=== PATIENT | male | born 1955 | race Caucasian/White ===

== ENCOUNTER → 2018-10-09 | Outpatient (CLI) | payer BC ==
[~2018-10-09] MED LIST: COZAAR 25 MG TA25 M2 PO; FLOMAX0.4 MG PO; MILK THISTLE175 M3 PO; MOBIC15 MG PO; MULTI-VITAMIN1 EAC5 PO; OMEGA-31000 M1 PO; PRILOSEC 20 MG20 MG PO; TRIPLE FLEX CA1 EACH PO; ULTRAM 50MG TAB50 MG PO; VIAGRA100 MG PO
--- NOTE | ~2018-10-09 | PAINCON ---
[address] [address] PAIN MANAGEMENT CONSULTATION Name: FRANCOISRAINE Room: [facility]#: [id number] Admission: 10/09/18 Attend Phys: Jesus Issa MD Discharge: Date of : 57 Report #: [id number] THIS REPORT FOR: //name// CC: Jesus Talley DATE OF SERVICE: 10/09/2018 CHIEF COMPLAINT: Back pain and right lower butt discomfort. HISTORY: The patient is a 63-year-old gentleman who has been followed in the [facility] He presents today with the desire to undergo treatment at our pain facility. He complains of pain in his back as well as in the right hip area. This has been problematic for quite some time. It has been present since 2013. He has had surgery on his low back area. The patient has had radiofrequency lesioning as well as some injections. He was not sure that the radiofrequency lesioning has been very helpful. Epidural steroid injections in the past have been helpful and provided about 75% relief. Had lumbar laminectomy in 2017. Rates his pain as a 7/10 at this juncture. Has used tramadol at bedtime as well as Mobic 15 mg daily. Notes that his pain is a 2-3, when he is sitting. Works in a salesman capacity. Notes that there is a tight pulling sensation in his low back area. Feels that there might be some pain and discomfort involving the piriformis muscle. He has also had some problems with SI joint problems and has undergone injections for this area in the past. Describes his pain as steady, burning, shooting, aching and intermittent. He is not having much pain radiating down into his leg on today's visit. ALLERGIES: PHENOBARBITAL, AUGMENTIN, an adverse reaction. CURRENT MEDICATIONS: Glucosamine chondroitin 2 tablets, Cozaar 25 mg/100 mg daily, Mobic 15 mg, milk thistle extract 175 mg, 350 mg daily, multivitamins, omega 3 of 1000 mg, Prilosec 20 mg, total of 40 mg daily; Viagra p.r.n., Flomax 0.4 mg at bedtime, tramadol 50 mg. PAST MEDICAL HISTORY: 1. Urgent need to urinate. 2. Sacral iliac pain. 3. Polyarthralgia. 4. Low back pain. 5. Essential hypertension. 6. Finger pain. 7. ____ hypertension. 8. Sleep apnea. 9. [place] [address] PAIN MANAGEMENT CONSULTATION Name: RAINE FRANCOIS Room: [facility]#: [id number] Admission: 10/09/18 Attend Phys: Jesus Issa MD Discharge: Date of : 57 Report #: [id number] PAST SURGICAL HISTORY: Left knee surgery in 1986, back surgery in 09/2017. Total of about 7 surgeries after the infected surgery of the knee in ____. Left elbow surgery in 1994, right foot spur removal. REVIEW OF SYSTEMS: Generally unremarkable, joint pain, back pain, difficulty walking. LABORATORY DATA: 1. MRI dated 2015, L2-L3, disk narrowed. A circumferential osteophyte/disc complex. No focal disk protrusion. Moderate inferior neural foraminal encroachment bilaterally. Moderate facet arthropathy. Thecal sac 1.1 cm AP. 2. L3-L4 disk narrowing with circumferential osteophyte complex. No focal disk protrusion. Moderate to severe facet arthropathy. Moderate bilateral neural foraminal encroachment. Central canal reduced in AP diameter to 0.7 cm. The lateral dimension of the canal is 0.9 cm. Thecal sac 0.7 cm AP. 3. L4-L5 disk space narrowed with moderate annular bulge. Disk bulge most significant in the left lateral recess and left exiting neural foramen, resulted in severe left neural foraminal encroachment. Moderate to severe facet arthropathy present. Central canal without stenosis. Thecal sac 0.9 cm AP. 4. L5-S1 disk narrowed with circumferential osteophyte complex. No focal disk protrusion. Severe facet arthropathy. Findings result in severe bilateral neural foraminal encroachment. Central canal without stenosis. Thecal sac 1.0 cm AP, myelogram spine exam dated 08/07/2017. a. Moderate lumbar scoliosis with chronic degenerative changes. b. Lateral translation L3 to the left of L4. 5. Prominent anterior indentation of the dural sac at L2-L3 with moderate spinal stenosis. 6. Broad left lateral induration of the dural sac at L4-L5 with reduced filling at L4 and L5 nerve sheaths. 7. There corresponds to soft tissue mass compatible with extruded disk on CT. 8. Anterior indentation of the dural sac at L4-L5 and L5-S1 compatible with bulging disk. L-spine exam, lateral flexion and extension views lumbar spine 08/07/2017. History of scoliosis. FINDINGS: The lumbar vertebral bodies maintained. They are normal in height. There is an 8 mm of retrolisthesis of L2 on L3 with moderate to severe loss of disk space height at that level. There is moderate degenerative height loss at L3-L4 and mild loss at L1-L2 and severe loss at L5-S1. Multilevel facet arthropathy is noted. There is approximately 1 mm of motion at L2 on L3 between flexion and extension. There is 3 mm of movement of L3 on L4 between flexion and extension. CT of the spine dated 08/07/2017. 1. Lumbar stenosis and severe chronic degenerative changes. 2. Mild circumferential L4-L5 disk bulging with soft tissue density material extending superiorly in the left lateral recess and left neural foramen. 3. This may represent an extruded disk material. 4. L4-L5 lateral recess stenosis and severe left neural [place] [address] PAIN MANAGEMENT CONSULTATION Name: RAINE FRANCOIS Room: [facility]#: [id number] Admission: 10/09/18 Attend Phys: Jesus Issa MD Discharge: Date of : 57 Report #: [id number] 5. Severe degenerative changes L5-S1 disk with severe left neural foraminal stenosis and moderate right neural foraminal stenosis. 6. Lateral translation L3 to the left of L4 and left lateral recess stenosis, moderate left neural foraminal stenosis and severe right neural foraminal stenosis. 7. Retrolisthesis L2 on L3 with right lateral recess stenosis. 8. Mild to moderate left L2-L3 neural foraminal stenosis and severe right neural foraminal stenosis. 9. Retrolisthesis L1 on L2. PAIN CLINIC ASSESSMENT/PQRS: 1. History of osteoarthritis. The patient has some arthritic changes in the low back area. He is not being treated for rheumatoid arthritis. 2. Height 5 feet 6 inches, weight 190 pounds, BMI is 30. 3. Vital signs: Blood pressure 164/90, heart rate 72, respiratory rate 16, room air saturation 96%, temperature 98.7. 4. Pain intensity 05/20. 5. Fall history: The patient has not fallen in the last 3 months. The patient notes increased pain and discomfort when he goes for a walk. 6. Fall risk. The patient has not fallen in the last 3 months. 7. Blood thinner. The patient is not on a blood thinning medication. 8. History of hypertension. He has been treated for hypertension. 9. Opioids greater than 6 weeks. 10. Risk assessment tool, low for opioid use. 11. Functional assessment tool. 12. Recreational drug use. The patient denies use of recreational drugs. 13. Tobacco: The patient stopped 20 years ago. 14. Alcohol. The patient drinks on the weekends 3-4 alcoholic beverages. PHYSICAL EXAMINATION: GENERAL: The patient is a well-developed, well-nourished white male. Appears his stated age. He is alert and oriented x 3. His affect is appropriate. Speech is fluent. HEENT: Normocephalic, atraumatic. Extraocular eye muscles intact. Sclerae nonicteric. Mucous membranes are moist. NECK: Without adenopathy or JVD. HEART: Regular rate. ABDOMEN: Nontender. Bowel sounds present. EXTREMITIES: Upper extremity muscle strength is judged to be 5/5. The patient with some scoliosis in the lumbar area. The patient without significant kyphosis or lordosis. The patient notes some tightness in his left low back area. Has some pain and discomfort with a pulling sensation in the right low back area near the buttocks. Notes increased discomfort with stretching. The patient has two incisions in the low back area. They are well healed. Complains of pain and discomfort in the left buttocks in the area of the posterior superior iliac spine as well as some pain in the area near the [facility] [address] [place] [address] PAIN MANAGEMENT CONSULTATION Name: RAINE FRANCOIS Room: [facility]#: [id number] Admission: 10/09/18 Attend Phys: Jesus Issa MD Discharge: Date of : 57 Report #: [id number] piriformis muscle. Muscle strength in the lower extremity is judged to be 5-/5 for the major muscle groups in the lower extremity. IMPRESSION: 1. Low back pain. 2. Sacroiliitis. 3. Hypertension. 4. Sleep apnea. 5. Depression. 6. Polyarthralgia. RECOMMENDATIONS: We discussed treatment options with the patient. He continues to have some pain and discomfort involving the lower portion of his back. Has pain that is in the area of the right posterior superior iliac spine. There is a small movable object about the size of ____ in this area. Palpation over this area does cause some of reduction of the patient's pain. The patient has some pain and discomfort in the left buttocks area as well. Denies any pain radiating down into his legs at this juncture. Has some decreased range of motion in the low back area. RECOMMENDATIONS: We discussed treatment options. The patient will return to the pain clinic at which time we will evaluate his back pain. The possibility exists of a lumbar epidural steroid injection. The patient also has a trigger point area in the right posterior superior iliac spine area. He will return to the pain clinic at which time he will be evaluated and possibly undergo an epidural steroid injection if needed or injection of the affected trigger point areas in the low back area. We would like to thank you for letting us participate in his care. We hope he continues to improve. By: [id number]. Sony Issa MD /nt
== END ==
LOC: M.PC 03:45
DX: M54.5 Low back pain (principal); M46.1 Sacroiliitis, not elsewhere classified; M25.50 Pain in unspecified joint; I10 Essential (primary) hypertension; G47.30 Sleep apnea, unspecified; F32.9 Major depressive disorder, single episode, unspecified

== ENCOUNTER → 2018-10-14 | Outpatient (CLI) | payer BC ==
--- NOTE | 2018-10-17 17:20 | PAINCON ---
[address] [address] PAIN MANAGEMENT CONSULTATION Name: FRANCOISRAINE Room: [facility]#: [id number] Admission: 10/14/18 Attend Phys: Jesus Issa MD Discharge: Date of : 57 Report #: [id number] THIS REPORT FOR: //name// CC: Jesus Talley DATE OF SERVICE: 10/14/2018 FOLLOWUP COMPLAINT: Back and low back pain. HISTORY: The patient is a 63-year-old gentleman who has been seen in the pain clinic because of low back and lower buttocks pain. The patient states that he has been seen in a pain clinic in the city recently. He is having pain and discomfort, which continues to be problematic in the right buttocks and hip area. He has had radiofrequency lesioning to the low back area. He has had some injections. At this juncture, he feels that his pain is problematic and causing discomfort. His most recent surgery was a laminectomy in 2017. Rates his pain overall at this juncture is 7/10. He is a salesperson and travels quite a bit. He notes that at this juncture he is having pain and discomfort in the lower portion of his back and has been told that he has some problem with his piriformis muscle. He has returned to the pain clinic for evaluation and treatment today. ALLERGIES: PHENOBARBITAL AND AUGMENTIN. MEDICATIONS: Glucosamine chondroitin 2 tablets, Cozaar 25 mg daily, Mobic 15 mg, milk thistle extract 175 mg, 350 mg total, multivitamins, omega 3 1000 mg, Prilosec 20 mg, total of 40 mg daily, Viagra p.r.n., Flomax 0.4 mg at bedtime, and tramadol 50 mg. PAIN CLINIC ASSESSMENT AND PQRS: 1. History of osteoarthritis. The patient has some arthritic changes in his low back. He is not being treated for rheumatoid arthritis. 2. Height 5 feet 6 inches, weight 185 pounds, BMI is 30. 3. Vital signs: Blood pressure 127/73, heart rate 76, respiratory rate 16, room air saturation 93%, and temperature 98.6. 4. Pain intensity 5/10. 5. Fall history: The patient has not fallen in the last 3 months. 6. Blood thinner: The patient is not on a blood thinning medication. 7. History of hypertension. The has been treated for hypertension. 8. Opioids greater than 6 weeks. The patient is taking tramadol medication. 9. Risk assessment tool. 10. Functional assessment tool. 11. Recreational drug use. The patient denies use of recreational drugs. 12. Tobacco: The patient stopped smoking 20 years ago. 13. Alcohol. The patient drinks 3-4 [place] [address] PAIN MANAGEMENT CONSULTATION Name: RAINE FRANCOIS Room: [facility]#: [id number] Admission: 10/14/18 Attend Phys: Jesus Issa MD Discharge: Date of : 57 Report #: [id number] PHYSICAL EXAMINATION: GENERAL: The patient is a well-developed, well-nourished white male. Appears his stated age. He is alert and oriented x 3. His affect is appropriate. Speech is fluent. HEENT: Normocephalic, atraumatic. Extraocular eye muscles intact. Sclerae nonicteric. Mucous membranes are moist. NECK: Without adenopathy or JVD. HEART: Regular rate. ABDOMEN: Nontender. Bowel sounds present. MUSCULOSKELETAL: Upper extremity muscle strength is 5/5. The patient has some scoliosis in the lumbar area. The patient is without significant kyphosis or lordosis. The patient notes some tightness in his low back area. The patient has pain and discomfort in the right buttocks area. Palpation ____ of the left posterior iliac crest area near the gluteus skip and latissimus dorsi revealed a trigger point. This area was injected with a solution of 10 mL of 0.5% bupivacaine and 80 mg of Depo-Medrol. The patient had an additional area of pain and discomfort near the lower edge of the SI joint. Palpation in this area did reproduce a component of the patient's pain. This area was aspirated. A total of 5 mL of 0.5% bupivacaine and 40 mg triamcinolone was injected into this area. The patient tolerated the procedure well. He remained in the pain clinic for an appropriate amount of time. Total of 18 seconds fluoroscopy time was used. He will follow up in the future as needed. We would like to thank you for letting us participate in his care. We hope he continues to improve. <ELECTRONICALLY SIGNED> By: Jesus Issa MD 10/17/18 1720 [id number]. Sony Issa MD /daniel
== END | disposition home or self-care (01) ==
LOC: M.PC 05:25
DX: M79.18 Myalgia, other site (principal); M54.9 Dorsalgia, unspecified; I10 Essential (primary) hypertension; Z88.8 Allergy status to other drugs, medicaments and biological substances; Z79.899 Other long term (current) drug therapy; Z87.891 Personal history of nicotine dependence

== ENCOUNTER → 2018-12-04 | Outpatient (CLI) | payer BC ==
--- NOTE | ~2018-12-04 | PAINCON ---
[address] [address] PAIN MANAGEMENT CONSULTATION Name: PRISCILARAINE Martinez [id number] Admission: 12/04/18 Attend Phys: Jesus Issa MD Discharge: Date of : 57 Report #: [id number] THIS REPORT FOR: //name// CC: Jesus Barcenas MD DATE OF SERVICE: 12/04/2018 CHIEF COMPLAINT: I have trigger points in the low back area. I would like to have an injection. HISTORY: The patient is a 63-year-old gentleman who has been followed in the pain clinic with pain in his low back and buttocks area. In last visit, he underwent trigger point injection and noticed some benefit. He is still having pain and discomfort in the lower portion of his back. The pain and discomfort is on the left as well as of right side of his buttocks. He has undergone radiofrequency lesioning of the low back area. He has also undergone some injections. Feels that the pain he is experiencing most at this juncture involves the right hip and left hip area. He received about 70% improvement after the last injection initially and now the pain has returned. Does have some pain that radiates down into his left leg. He has returned today for an injection. He feels that tramadol continues to be helpful. His most recent surgery of the laminectomy was in 2017. 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 He has been told in the past that he had some problems with his piriformis muscle. He has returned today for an injection into the 2 painful areas in his low back. ALLERGIES: PEANUTS, PHENOBARBITAL, AUGMENTIN. CURRENT MEDICATIONS: Glucosamine, chondroitin 2 tablets, Cozaar 25 mg, Mobic 15 mg, milk thistle extract 175 mg, 350 mg total daily, multivitamin, Wayside-3 1000 mg, Prilosec 20 mg, total of 40 mg, Viagra p.r.n., Flomax 0.4 mg at bedtime, tramadol 50 mg. PAIN CLINIC ASSESSMENT/PQRS: 1. The patient has a history of osteoarthritic changes and has had surgery in his low back area. He has not been treated for rheumatoid arthritis. 2. Height 5 feet 6 inches, weight 187 pounds, BMI is 30. 3. Vital Signs: Blood pressure 156/104, respiratory rate 16, heart rate 76, saturation 94%, temperature 98.2. 4. Pain intensity 7/10 when he is standing 3-4/10 when he is sitting. 5. Fall history: The patient has not fallen in the last 3 months. 6. Blood thinner. The patient is not on a blood thinning medication. 7. Hypertension. The patient has been treated for hypertension. 8. Opioid greater than 6 weeks. The patient [place] [address] PAIN MANAGEMENT CONSULTATION Name: RAINE FRANCOIS Room: [facility]#: [id number] Admission: 12/04/18 Attend Phys: Jesus Issa MD Discharge: Date of : 57 Report #: [id number] and has been using tramadol. 9. Risk assessment tool, low for opioid use excellent Functional assessment tool. 10. Recreational drug use. The patient denies use of recreational drugs. 11. Tobacco: The patient stopped smoking 20 years ago. 12. Alcohol. The patient drinks 3-4 alcoholic beverages on the weekend. PHYSICAL EXAMINATION: GENERAL: The patient is a well-developed, well-nourished white male. Appears his stated age. He is alert and oriented x 3. His affect is appropriate. Speech is fluent. HEENT: Normocephalic, atraumatic. Extraocular eye muscles intact. Sclerae nonicteric. Mucous membranes are moist. NECK: Without adenopathy or JVD. HEART: Regular rate. ABDOMEN: Nontender. CHEST: Clear to auscultation. EXTREMITIES: Upper extremity muscle strength is judged to be 5/5 for the major muscle groups in the upper extremity. The patient has some pain and discomfort in the buttocks area near the left gluteus skip on the left side and right side. These both are near the iliac joint and sacral areas. Palpation on the right as well as the left, both reproduce pain and discomfort with the patient has been complaining of. RECOMMENDATIONS: We discussed the treatment options with the patient. At this juncture, we will inject the trigger points with local anesthetic and steroid. Risks and benefits of the procedure were discussed. They include but are not limited to infection, worsening of pain, no improvement in pain, ____ local anesthetic on to the sciatic nerve with numbness in his leg for a number of hours. He elects to proceed. PROCEDURE NOTE: The patient's sacral area was sterilely prepped with a Betadine solution. It was allowed to dry. The two trigger point areas near the left posterior superior iliac spine on the left side was identified. This area was then palpated trigger point was noted. A 25-gauge needle was advanced into the area. The patient states that in this area. This did reproduce pain and discomfort. He was experiencing. Aspiration was negative. A total of 40 mg Depo-Medrol and 20 mg triamcinolone was injected with 8 mL of 0.5% bupivacaine. The contralateral side was treated in the like fashion. The trigger point was noted. A 25-gauge needle in the gluteus skip area was palpated. A 25-gauge needle was then directed toward the trigger point. The patient states this did reproduce his trigger point. Aspiration was negative. Total of 40 mg Depo-Medrol and 20 mg triamcinolone was injected with 8 mL of 0.5% bupivacaine. The patient tolerated the procedure well. There were no complications. He remained in the pain clinic for an appropriate amount of time. He will follow up in the future as needed. We would like to [place] [address] PAIN MANAGEMENT CONSULTATION Name: RAINE FRANCOIS Room: [facility]#: [id number] Admission: 12/04/18 Attend Phys: Jesus Issa MD Discharge: Date of : 57 Report #: [id number] participate in his care. He will call us should he have any problems or complaints. By: [id number]. Sony Issa MD /MARLON
== END | disposition home or self-care (01) ==
LOC: M.PC 11:30
DX: M79.18 Myalgia, other site (principal); M19.90 Unspecified osteoarthritis, unspecified site; I10 Essential (primary) hypertension; Z87.891 Personal history of nicotine dependence; Z88.8 Allergy status to other drugs, medicaments and biological substances; Z79.899 Other long term (current) drug therapy

== ENCOUNTER → 2019-01-08 | Outpatient (CLI) | payer BC ==
--- NOTE | ~2019-01-08 | PAINCON ---
[address] [address] PAIN MANAGEMENT CONSULTATION Name: RAINE FRANCOIS Room: [facility]#: [id number] Admission: 01/08/19 Attend Phys: Jesus Issa MD Discharge: Date of : 57 Report #: [id number] THIS REPORT FOR: //name// CC: Jesus Talley DATE OF SERVICE: 01/08/2019 CHIEF COMPLAINT: Low back pain. FOLLOWUP HISTORY: The patient is a 63-year-old gentleman who has been seen in the pain clinic because of lumbar pain. He has undergone trigger point injections in the past. He returns today indicating that his pain continues to be problematic. At this juncture, he would like to proceed with a lumbar epidural steroid injection. Notes that the pain in his back has increased. He rates as a 7/10 at this juncture. It radiates down into his right hip has been using tramadol to help control the pain. It has been rated 9/10 over the last week. He has undergone radiofrequency lesioning of the low back area. He has received about 70% improvement in his back in the past with epidural steroid injections. Has had pain that radiated down to his left leg. 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 He is experiencing pain which is radiating primarily down the right low back area in the L5-S1 dermatomal distribution. ALLERGIES: PEANUTS, PHENOBARBITAL, and AUGMENTIN. CURRENT MEDICATIONS: Glucosamine, chondroitin 2 tablets, Cozaar 25 mg, Mobic 15 mg, milk thistle extract 175 mg, 350 mg total daily, multivitamins, omega 3 of 1000 mg, Prilosec 20 mg, total of 40 mg, Viagra p.r.n., Flonase, Flomax 0.4 mg at bedtime, and tramadol 50 mg. PAIN CLINIC ASSESSMENT/PQRS: 1. The patient has a history of osteoarthritis and changes in the low back area. He is not being treated for rheumatoid arthritis. 2. Height 5 feet 6 inches, weight 181 pounds, BMI is 29.3. 3. Vital Signs: Blood pressure 144/91, heart rate 68, respiratory rate 16, room air saturation 93%. 4. Pain intensity 7/10, temperature 97.6. 5. Fall history: The patient has not fallen in the last 3 months. 6. Blood thinner. The patient is not on a blood thinning medication. 7. Hypertension. The patient is being treated for hypertension. 8. Opioid is greater than 6 weeks. The patient receives his medications from one source, pain clinic. 9. Risk assessment tool, low for opioid use. 10. Recreational drug use. The patient denies use of recreational drugs. 11. Tobacco: The patient stopped smoking [place] [address] PAIN MANAGEMENT CONSULTATION Name: RAINE FRANCOIS Room: [facility]#: [id number] Admission: 01/08/19 Attend Phys: Jesus Issa MD Discharge: Date of : 57 Report #: [id number] 12. Alcohol. The patient drinks 3-4 alcoholic beverages on the weekend. PHYSICAL EXAMINATION: GENERAL: The patient is a well-developed, well-nourished white male. Appears his stated age. He is alert and oriented x 3. His affect is appropriate. Speech is fluent. HEENT: Normocephalic, atraumatic. Extraocular eye muscles intact. Sclerae nonicteric. Mucous membranes are moist. NECK: Without adenopathy or JVD. HEART: Regular rate. ABDOMEN: Nontender, bowel sounds present. Extremity muscles in the upper extremity are judged to be 5/5 for the major muscle groups. The patient has pain and discomfort in the left gluteus skip area with pain that is radiating down the left side and the right side, more problematic on the right side today in the L5-S1 dermatomal distribution. IMPRESSION: Lumbar radiculopathy in the right L5-S1 dermatomal distribution. Polyarthralgia, essential hypertension, sleep apnea and depression. RECOMMENDATIONS: We discussed treatment options with the patient. Risks and benefits of an epidural steroid injection were again reviewed. They include but are not limited to infection, worsening of pain, no improvement in pain, nerve damage, paralysis and the patient elects to proceed. PROCEDURE NOTE: The patient was taken to the procedure area. He was assisted in getting on the examination table. A pillow was placed under his abdomen to bolster and improved positioning. Fluoroscopy using anterior, posterior as well as lateral viewing were implemented. The patient's back and the L5 midline area using a right paraspinous approach was undertaken at the L5-S1 area. A 0.25% bupivacaine was infiltrated. A 17-gauge Tuohy with loss of resistance technique gained access to the epidural space. There was no CSF, heme or paresthesia. A total of 80 mg Depo-Medrol, 40 mg triamcinolone and 2 mL of 0.25% bupivacaine was injected. The patient tolerated the procedure well. There were no complications. He remained in the pain clinic for appropriate amount of time. The patient was provided 11 seconds of fluoroscopy time. He will follow up in the future as needed. We would like to thank you for letting us participate in his care. We hope he continues to improve. By: [id number]. Sony Issa MD /daniel
== END | disposition home or self-care (01) ==
LOC: M.PC 08:38
DX: M54.16 Radiculopathy, lumbar region (principal); G89.29 Other chronic pain; I10 Essential (primary) hypertension; F32.9 Major depressive disorder, single episode, unspecified; G47.33 Obstructive sleep apnea (adult) (pediatric); M25.50 Pain in unspecified joint; Z88.8 Allergy status to other drugs, medicaments and biological substances; Z87.891 Personal history of nicotine dependence; Z98.890 Other specified postprocedural states; Z79.899 Other long term (current) drug therapy

== ENCOUNTER → 2019-04-14 | Outpatient (CLI) | payer BC ==
--- NOTE | ~2019-04-14 | PAINCON ---
[address] [address] PAIN MANAGEMENT CONSULTATION Name: FRANCOISRAINE Room: [facility]#: [id number] Admission: 04/14/19 Attend Phys: Jesus Issa MD Discharge: Date of : 57 Report #: [id number] THIS REPORT FOR: //name// CC: Jesus Talley DATE OF SERVICE: 04/14/2019 CHIEF COMPLAINT: Pain in the low back area was helped with the last injection, I would like to have another. HISTORY: The patient is a 63-year-old gentleman who has been followed in the pain clinic. He suffers from low back pain. Has had pain in the lower portion of his back. As noted pain that vacillates between SI joint pain as well as lumbar radicular pain. He has undergone treatment IN the areas with SI joint injections as well as lumbar epidural steroid injections. He states that the last lumbar epidural steroid injection has been beneficial. He has returned today for another. Still has pain that radiates down into his low back. States that his pain is not problematic when he is sitting. Notes that he rates to 4-5 if he walks greater than 100 yards. He had no complication from the last visit. No problem with his bowel or bladder function. Overall, feels he is 60-70% improved after last injection. Pain is most problematic on his right side. ALLERGIES: PEANUTS, PHENOBARBITAL, AUGMENTIN. CURRENT MEDICATIONS: Glucosamine chondroitin 2 tablets, Cozaar 25 mg, Mobic 15 mg, milk thistle extract 175 mg, 350 mg total, multivitamins, omega 3 1000 mg, Prilosec 20 mg, total of 40 mg, Viagra p.r.n., Flonase, Flomax 0.4 mg at bedtime, tramadol 50 mg. PAIN CLINIC ASSESSMENT/PQRS: 1. The patient has a history of osteoarthritis, has had some changes in his low back area. He has had surgery. He is not being treated for rheumatoid arthritis. 2. Height 5 feet 6 inches, weight 173 pounds, BMI is 28.5. 3. VITAL SIGNS: Blood pressure 155/84, heart rate 87, respiratory rate 16, room air saturation 98%, and temperature is 98.6. 4. Pain intensity 0 when resting 4/10 with activity. 5. Blood thinner. The patient is not on a blood thinning medication. 6. Hypertension. The patient is being treated for hypertension. 7. Opioid is greater than 6 weeks. The patient receives medication from the pain clinic. 8. Risk assessment tool, low for opioid use. 9. Functional assessment tool. Denies use of recreational drugs. 10. Tobacco: The patient stopped smoking 20 years ago. 11. Alcohol. The patient drinks 3-4 [place] [address] PAIN MANAGEMENT CONSULTATION Name: RAINE FRANCOIS Room: [facility]#: [id number] Admission: 04/14/19 Attend Phys: Jesus Issa MD Discharge: Date of : 57 Report #: [id number] PHYSICAL EXAMINATION: GENERAL: The patient is a well-developed, well-nourished white male. Appears his stated age. He is alert and oriented x 3. His affect is appropriate. Speech is fluent. HEENT: Normocephalic, atraumatic. Extraocular eye muscles intact. Sclerae nonicteric. Mucous membranes are moist. NECK: Without adenopathy or JVD. ABDOMEN: Nontender. Bowel sounds present. MUSCULOSKELETAL: Without significant scoliosis, kyphosis or lordosis. The patient has pain and discomfort radiating down the L5-S1 dermatomal distribution involving the posterior portion of his leg. IMPRESSION: 1. Lumbar radiculopathy in the L5-S1 dermatomal distribution. 2. Polyarthralgia. 3. Essential hypertension. 4. Sleep apnea. 5. Depression. RECOMMENDATIONS: We discussed treatment options with the patient. Risks and benefits of an epidural steroid injection were again reviewed. Possible complications of the procedure, which could include but are not limited to infection, worsening of pain, no improvement in pain, headache, muscle soreness were discussed and the patient elects to proceed. PROCEDURE NOTE: The patient was taken to the procedure area. He was then assisted in getting on the examination table. His back was sterilely prepped with a Betadine solution. A pillow was placed under the abdomen to bolster and improve positioning. Anterior, posterior as well as lateral viewing with fluoroscopy was undertaken. A 0.25% bupivacaine was infiltrated in the L5-S1 area on the right. A midline approach was undertaken. Aspiration was negative. A total of 80 mg Depo-Medrol, 40 mg triamcinolone and 2 mL of 0.25% bupivacaine was injected. The patient tolerated the procedure well. There were no complications. He remained in the pain clinic for an appropriate amount of time. Approximately 12 seconds fluoroscopy time was used. The patient had no pain at the time of discharge. He will follow up in the future as needed. We would like to thank you for letting us participate in his care. We hope he continues to improve. By: [id number]. Sony Issa MD /nt
== END | disposition home or self-care (01) ==
LOC: M.PC 05:10
DX: M54.16 Radiculopathy, lumbar region (principal); G89.29 Other chronic pain; I10 Essential (primary) hypertension; F32.9 Major depressive disorder, single episode, unspecified; G47.30 Sleep apnea, unspecified; Z88.8 Allergy status to other drugs, medicaments and biological substances; Z87.891 Personal history of nicotine dependence; Z79.899 Other long term (current) drug therapy; Z98.890 Other specified postprocedural states

== ENCOUNTER → 2019-07-30 | Outpatient (CLI) | payer BC ==
--- NOTE | 2019-08-03 09:16 | PAINCON ---
[address] [address] PAIN MANAGEMENT CONSULTATION Name: FRANCOISRAINE Room: [facility]#: [id number] Admission: 07/30/19 Attend Phys: Jesus Issa MD Discharge: Date of : 57 Report #: [id number] THIS REPORT FOR: //name// CC: Jesus Talley DATE OF SERVICE: 07/30/2019 CHIEF COMPLAINT: The last injection was helpful, but his pain has started to recur, here for another injection. HISTORY: The patient is a 64-year-old gentleman who has been followed in the pain clinic because of chronic pain. He has had back surgery. He suffers from chronic lumbar radicular pain. He has pain radiating down in the right low back area into the L5-S1 dermatomal distribution. He describes the pain as an 8-9 with activity. It is not very problematic when he is sitting. He does suffer from spinal stenosis. He also has some pain and discomfort in his left and right shoulder. He has undergone injections in the past and would like to consider an injection in the shoulders in the near future. He feels that his medications are helpful. Rates his pain as about 70% improved with epidural injections. ALLERGIES: PEANUTS, PHENOBARBITAL, AUGMENTIN. CURRENT MEDICATIONS: Glucosamine chondroitin 2 tablets, Cozaar 25 mg, Mobic 15 mg, milk thistle extract 175 mg, total of 350 mg daily, multivitamins, omega 3 oils 1000 mg, Prilosec 20 mg, total of 40 mg daily, Viagra p.r.n., Flonase, Flomax 0.4 mg at bedtime, tramadol 50 mg. PAIN CLINIC ASSESSMENT AND PQRS: 1. The patient has a history of osteoarthritis. He has some changes in his low back area. He has undergone back surgery. He is not being treated for rheumatoid arthritis. 2. Height 5 feet 6 inches, weight 177 pounds, BMI is 28.6. 3. Vital Signs: Blood pressure 146/78, heart rate 83, respiratory rate 18, room air saturation 94%, temperature 98.3. 4. Pain intensity is 6-7 without activity, can increase to 8-9 with activity. 5. Fall history. The patient has not fallen in the last month. 6. Blood thinner. The patient is not on a blood thinning medication. 7. Hypertension. The patient is being treated for hypertension. 8. Opioids greater than 6 weeks. The patient receives medication from one source, the pain clinic. 9. Risk assessment tool, low for opioid use. 10. Functional assessment tool. 11. Recreational drug use. The patient stopped smoking 20 years ago. 12. Alcohol: The patient drinks 3-4 alcoholic [place] [address] PAIN MANAGEMENT CONSULTATION Name: RAINE FRANCOIS Room: [facility]#: [id number] Admission: 07/30/19 Attend Phys: Jesus Issa MD Discharge: Date of : 57 Report #: [id number] PHYSICAL EXAMINATION: GENERAL: The patient is a well-developed, well-nourished white male. Appears his stated age. He is alert and oriented x 3. His affect is appropriate. Speech is fluent. HEENT: Normocephalic, atraumatic. Extraocular eye muscles intact. Sclerae nonicteric. Mucous membranes are moist. NECK: Without adenopathy or JVD. ABDOMEN: Nontender. HEART: Regular rate. EXTREMITIES: Upper extremity muscle strength judged to be 5/5 for the major muscle groups in the upper extremity. Lower extremity muscle strength judged to be 5/5 for the major muscle groups in the lower extremity. The patient notes increased pain and discomfort with prolonged standing. Pain is more problematic on the right than left. The patient without significant scoliosis, kyphosis or lordosis. The patient has well-healed scars in the lower portion of his back from previous surgeries. IMPRESSION: 1. Lumbar radiculopathy at the L5-S1 dermatomal distribution. 2. Polyarthralgia. 3. Essential hypertension. 4. Sleep apnea. 5. Depression. RECOMMENDATIONS: We discussed treatment options with the patient. Risks and benefits of an epidural steroid injection were again reviewed. They include but are not limited to infection, worsening of pain, no improvement in pain, muscle soreness, nerve damage with paralysis and the patient elects to proceed. PROCEDURE NOTE: The patient was taken to the procedure area. He was then assisted in getting on the examination table. His back was sterilely prepped with a Betadine solution. A 0.25% bupivacaine was infiltrated using a 25-gauge needle. A 17-gauge Tuohy with loss of resistance technique at the L5-S1 area using a midline approach was undertaken. There was no CSF, heme or paresthesia. A total of 80 mg Depo-Medrol, 40 mg triamcinolone and 2 mL of 0.25% bupivacaine was injected. The patient tolerated the procedure well. He remained in the pain clinic for an appropriate amount of time. He will follow up in the future. The patient would like to consider shoulder injections in the future. We would like to thank you for letting us participate in his care. We hope he continues to improve. <ELECTRONICALLY SIGNED> By: Jesus Issa MD 08/03/19 0916 1329 [id number]. Sony Issa MD /MARLON
== END | disposition home or self-care (01) ==
LOC: M.PC 05:03
DX: M54.5 Low back pain (principal); M54.16 Radiculopathy, lumbar region; M25.50 Pain in unspecified joint; I10 Essential (primary) hypertension; G47.30 Sleep apnea, unspecified; F32.9 Major depressive disorder, single episode, unspecified; M19.90 Unspecified osteoarthritis, unspecified site; Z88.8 Allergy status to other drugs, medicaments and biological substances; Z79.899 Other long term (current) drug therapy

== ENCOUNTER → 2019-10-27 | Outpatient (CLI) | payer BC ==
--- NOTE | 2019-10-28 13:33 | PAINCON ---
[address] [address] PAIN MANAGEMENT CONSULTATION Name: RAINE FRANCOIS Room: [facility].#: [id number] Admission: 10/27/19 Attend Phys: Jesus Issa MD Discharge: Date of : 57 Report #: [id number] THIS REPORT FOR: //name// CC: Jesus Talley MD DATE OF SERVICE: 10/27/2019 CHIEF COMPLAINT: "Pain has returned and is going down in my leg. The last injection worked very well and I would like to have another one." HISTORY: The patient is a 64-year-old gentleman who has been followed in the pain clinic. Continues to have pain and discomfort in lower portion of his back. He has had back surgery. Continues to have pain in the L5-S1 dermatomal distribution. He is having pain, which he rates as 8-9 today. He would like to proceed with another epidural steroid injection to help decrease the pain and discomfort. He notes that the pain is in the right buttocks and radiates down to her right hip into the posterior portion of his thigh in the L5-S1 distribution. ALLERGIES: PEANUTS, PHENOBARBITAL, AUGMENTIN. CURRENT MEDICATIONS: Glucosamine/chondroitin 2 tablets, Cozaar 25 mg, Mobic 15 mg, milk thistle extract 175 mg, total of 850 mg daily, multivitamins, omega 3 oils 1000 mg, Prilosec 20 mg, total of 40 mg daily, Viagra p.r.n., Flonase, Flomax 0.4 mg at bedtime, tramadol 50 mg. PAIN CLINIC ASSESSMENT/ PQRS: 1. The patient has a history of osteoarthritis. Has some changes in the low back area. He has undergone back surgery. He is not being treated for rheumatoid arthritis. 2. Height 5 feet 7 inches, weight 180 pounds, BMI is 29. 3. Vital Signs: Blood pressure 154/88, heart rate 86, respiratory rate 16, room air saturation 96%, temperature 98.5. 4. Pain intensity 8.5/10. PHYSICAL EXAMINATION: GENERAL: The patient is a well-developed, well-nourished white male. Appears his stated age. He is alert and oriented x 3. His affect is appropriate. Speech is fluent. HEENT: Normocephalic, atraumatic. Extraocular eye muscles intact. Sclerae nonicteric. Mucous membranes are moist. MUSCULOSKELETAL: The patient has pain and discomfort in lower portion of his back. He has pain that is radiated down down to the L5-S1 area on the right. Notes some pain in the buttocks area. [place] [address] PAIN MANAGEMENT CONSULTATION Name: RAINE FRANCOIS Room: [facility]#: [id number] Admission: 10/27/19 Attend Phys: Jesus Issa MD Discharge: Date of : 57 Report #: [id number] standing. The patient without significant scoliosis, kyphosis or lordosis. Has a well-healed scar in the lower portion of his back from previous surgeries. IMPRESSION: 1. Lumbar radiculopathy in the L5-S1 dermatomal distribution. 2. Polyarthralgia. 3. Essential hypertension. 4. Sleep apnea. 5. Depression. RECOMMENDATIONS: We discussed treatment options with the patient. Risks and benefits of an epidural steroid injection were again discussed. The possible complications of the procedure, which could include but are not limited to infection, worsening of pain, increased muscle discomfort, nerve damage were reviewed and the patient elects to proceed. PROCEDURE NOTE: The patient was taken to the procedure area. He was then assisted in getting on the examination table. His back was sterilely prepped with the Betadine solution. A 0.25% bupivacaine was infiltrated at the L5-S1 area. A 17-gauge Tuohy with loss of resistance technique was used to gain access to the epidural space. After appropriate placement, a total of 80 mg Depo-Medrol, 40 mg triamcinolone and 2 mL of 0.25% bupivacaine was injected. The patient tolerated the procedure well. There were no complications. He remained in the pain clinic for an appropriate amount of time. Total of 10 seconds fluoroscopy time was used. The patient will follow up in the future as needed. We would like to thank you for letting us participate in his care. We hope he continues to improve. <ELECTRONICALLY SIGNED> By: Jesus Issa MD 10/28/19 1333 1311 2221N. Sony Issa MD /nt
== END | disposition home or self-care (01) ==
LOC: M.PC 04:56
DX: M54.16 Radiculopathy, lumbar region (principal); G89.29 Other chronic pain; M13.0 Polyarthritis, unspecified; I10 Essential (primary) hypertension; G47.30 Sleep apnea, unspecified; F32.9 Major depressive disorder, single episode, unspecified; Z98.890 Other specified postprocedural states; Z79.899 Other long term (current) drug therapy; Z88.8 Allergy status to other drugs, medicaments and biological substances

== ENCOUNTER → 2019-12-29 | Outpatient (CLI) | payer OTHER ==
--- NOTE | 2020-01-01 09:06 | PAINCON ---
[address] [address] PAIN MANAGEMENT CONSULTATION Name: RAINE FRANCOIS Room: [facility]#: [id number] Admission: 12/29/19 Attend Phys: Jesus Issa MD Discharge: Date of : 57 Report #: [id number] THIS REPORT FOR: //name// cc: Ghanshyam Talley MD, William MD ~ THIS REPORT FOR: //name// CC: eJsus Talley DATE OF SERVICE: 12/29/2019 CHIEF COMPLAINT: Return of pain in the low back and down in the right leg. HISTORY: The patient is a 64-year-old gentleman who has been followed in the pain clinic because of lumbar radiculopathy. He continues to have pain, which has improved after epidural steroid injections. He has returned today with the hope of undergoing another epidural injection today. He continues to try to work out in the gym. Continues with stretching activities. Rates his pain as 8/10 at this juncture. Notes that walking, standing, bending, and lifting can be problematic. Uses tramadol to help with pain control. He has returned today with the hopes of undergoing another injection. He had no complication from the injection in the past. ALLERGIES: PEANUTS, PHENOBARBITAL, AUGMENTIN. CURRENT MEDICATIONS: Glucosamine/chondroitin 2 tablets, Cozaar 25 mg, Mobic 15 mg, milk thistle extract 175 mg, total of 850 mg daily, multivitamins, omega 3 oils 1000 mg, Prilosec 20 mg, total of 40 mg, Viagra p.r.n., Flonase, Flomax 0.4 mg at bedtime, tramadol 50 mg. PAIN CLINIC ASSESSMENT AND PQRS: 1. The patient does have a history of osteoarthritis in his back. He has had back surgeries. He is not being treated for rheumatoid arthritis. 2. Height 5 feet 7 inches, weight 175 pounds, BMI is 27. 3. Vital signs: Blood pressure 137/87, heart rate 71, respiratory rate 18, room air saturation 97%, temperature 98.1. 4. Pain intensity /10. 5. Fall history: The patient has not fallen in the last 3 months. 6. Blood thinner. The patient is not on a blood thinning medication. 7. Opioids. The patient is using tramadol medication. 8. Risk assessment tool, low for opioid use. 9. Functional assessment tool has been reviewed. 10. Recreational drug use: The patient denies. 11. Tobacco: The patient denies. 12. Alcohol: The patient drinks 3-4 [place] [address] PAIN MANAGEMENT CONSULTATION Name: PRISCILARAINE Martinez Room: [facility]#: [id number] Admission: 12/29/19 Attend Phys: Jesus Issa MD Discharge: Date of : 57 Report #: [id number] PHYSICAL EXAMINATION: GENERAL: The patient is a well-developed, well-nourished white male. Appears his stated age. He is alert and oriented x 3. His affect is appropriate. Speech is fluent. HEENT: Normocephalic, atraumatic. Extraocular eye muscles intact. Sclerae nonicteric. Mucous membranes are moist. NECK: Without adenopathy or JVD. HEART: Regular rate. ABDOMEN: Nontender. EXTREMITIES: Upper extremity muscle strength judged to be 5/5 for the major muscle groups in the upper extremity. Lower extremity muscle strength judged to be 5-/5 in the right lower extremity. The patient is walking with an antalgic gait. The patient without significant scoliosis, kyphosis or lordosis. He has a well-healed scar in the lower portion of his back. IMPRESSION: 1. Lumbar radiculopathy at the L5-S1 dermatomal distribution. 2. Polyarthralgias. 3. Essential hypertension. 4. Sleep apnea. 5. Depression. RECOMMENDATIONS: We discussed treatment options with the patient. Risks and benefits of an epidural steroid injection were discussed. Possible complications of the procedure, which could include, but are not limited to infection, worsening pain, no improvement in pain, nerve damage, spinal headache and the patient elects to proceed. PROCEDURE NOTE: The patient was taken to the procedure area. He was then assisted in getting on the examination table. His back was sterilely prepped with a Betadine solution. Fluoroscopy using anterior, posterior as well as lateral viewing were implemented. The patient's back at the L5-S1 area was sterilely prepped. A 0.25% bupivacaine was infiltrated in this area using 25-gauge needle to anesthetize it. A 17-gauge Tuohy at the L5-S1 area was then used to gain access to the epidural space. There was no CSF, heme or paresthesia. Total of 80 mg Depo-Medrol, 40 mg triamcinolone and 2 mL of 0.25% bupivacaine was injected. The patient tolerated the procedure well. He remained in the pain clinic for an appropriate amount of time. He will follow up in the future. Approximately 17 seconds fluoroscopy time was used. <ELECTRONICALLY SIGNED> By: Jesus Issa MD 01/01/20 0906 1345 1550N. Sony Issa MD /MARLON
== END | disposition home or self-care (01) ==
LOC: M.PC 11:20
DX: M54.16 Radiculopathy, lumbar region (principal); G89.29 Other chronic pain; I10 Essential (primary) hypertension; F32.9 Major depressive disorder, single episode, unspecified; G47.30 Sleep apnea, unspecified; M25.50 Pain in unspecified joint; Z98.890 Other specified postprocedural states; Z79.899 Other long term (current) drug therapy; Z88.8 Allergy status to other drugs, medicaments and biological substances

== ENCOUNTER → 2020-03-24 | Outpatient (CLI) | payer OTHER ==
--- NOTE | 2020-04-05 22:11 | PAINCON ---
[address] [address] PAIN MANAGEMENT CONSULTATION Name: RAINE FRANCOIS Room: [facility]#: [id number] Admission: 03/24/20 Attend Phys: Jesus Issa MD Discharge: Date of : 57 Report #: [id number] THIS REPORT FOR: //name// cc: Ghanshyam Talley MD, William MD ~ THIS REPORT FOR: //name// CC: Jesus Talley DATE OF SERVICE: 03/24/2020 PRIMARY CARE PHYSICIAN: Ghanshyam Talley MD CHIEF COMPLAINT: Return of back pain, which was helped after the last injection. HISTORY: The patient is a 64-year-old gentleman who has been followed in the pain clinic because of lumbar radiculopathy. He has undergone epidural steroid injections. He has had a recurrence of pain in the right buttock. It radiates down into his hip. These injections have been quite helpful. He has returned today because of the pain. It has increased to the level of 8/10. He has noted increased discomfort with activity, walking as well as standing. He has used medications, heat and rest. He has returned for another injection. ALLERGIES: PEANUTS, PHENOBARBITAL, AUGMENTIN. CURRENT MEDICATIONS: Glucosamine/chondroitin, Cozaar 25 mg, Mobic 15 mg, milk thistle extract 175 mg, total of 850 mg daily, multivitamins, omega 3 oils 1000 mg, Prilosec 20 mg, total of 40 mg, Viagra p.r.n., Flonase, Flomax 0.4 mg at bedtime, tramadol 50 mg. PAIN CLINIC ASSESSMENT AND PQRS: 1. The patient does have a history of osteoarthritis in his back. He has had back surgeries. He is not being treated for rheumatoid arthritis. 2. Height 5 feet 7 inches, weight 171 pounds, BMI is 27.1. 3. Vital signs: Blood pressure 129/83, heart rate 81, respiratory rate 16, room air saturation 95%. 4. Temperature 98.5. 5. Pain intensity 06/20. 6. Fall history: The patient has not fallen in the last 3 months. 7. Blood thinner. The patient is not on a blood thinning medication. 8. Risk assessment tool, low for opioid use. 9. Functional assessment tool reviewed. 10. Recreational drug use. The patient denies. 11. Tobacco: [place] [address] PAIN MANAGEMENT CONSULTATION Name: RAINE FRANCOIS Room: [facility]#: [id number] Admission: 03/24/20 Attend Phys: Jesus Issa MD Discharge: Date of : 57 Report #: [id number] 12. Alcohol: The patient drinks 3-4 alcoholic beverages on weekends. PHYSICAL EXAMINATION: GENERAL: The patient is a well-developed, well-nourished white male. Appeared his stated age. He is alert and oriented x 3. His affect is appropriate. Speech is fluent. HEENT: Normocephalic, atraumatic. Extraocular eye muscles intact. Sclerae nonicteric. Mucous membranes are moist. NECK: Without adenopathy or JVD. HEART: Regular rate. ABDOMEN: Nontender. EXTREMITIES: Upper extremity muscle strength judged to be 5/5 for the major muscle groups in the upper extremity. Lower extremity muscle strength judged to be 5-/5 for the right lower extremity. The patient is walking with an antalgic gait. The patient is without significant scoliosis, kyphosis or lordosis. He has a well-healed scar in the lower portion of his back. IMPRESSION: 1. Lumbar radiculopathy at the L5-S1 dermatomal distribution. 2. Polyarthralgias. 3. Essential hypertension. 4. Sleep apnea. 5. Depression. RECOMMENDATIONS: We discussed treatment options with the patient. Risks and benefits of an epidural steroid injection were discussed. The possible complications of the procedure were reviewed. They could include but are not limited to infection, muscle soreness, bleeding, nerve damage, and spinal headache. The patient at this point he is aware that COVID-19 is prevalent. We have explained to him the possibility that if he were to contract an infection with COVID-19, he may have a more difficult time fighting this off. He has been informed of the ability of steroids to decrease one's immunity. He feels that the pain is problematic and would like to proceed. PROCEDURE NOTE: The patient was taken to the procedure area. He was then assisted in getting on the examination table. His back was sterilely prepped with a Betadine solution. A 0.25% bupivacaine was infiltrated at the L5-S1 level. A fluoroscopy visualization with anterior and posterior as well as lateral viewing were implemented. A total of 80 mg Depo-Medrol, 40 mg triamcinolone and 2 mL of 0.25% bupivacaine was injected. Total of 19 seconds fluoroscopy time was used. The patient tolerated the procedure well. He will follow up in the future as needed. He will continue with tramadol 50 mg 2 tablets [place] [address] PAIN MANAGEMENT CONSULTATION Name: RAINE FRANCOIS Room: [facility]#: [id number] Admission: 03/24/20 Attend Phys: Jesus Issa MD Discharge: Date of : 57 Report #: [id number] We would like to thank you for letting us participate in his care. <ELECTRONICALLY SIGNED> By: Jesus Issa MD 04/05/20 2211 [id number] [id number] Issa MD /[facility]
== END | disposition home or self-care (01) ==
LOC: M.PC 03-01 11:00
PROVIDERS: ATTEND Anesthesiology Pain Medicine
DX: M54.16 Radiculopathy, lumbar region (principal); G89.29 Other chronic pain; I10 Essential (primary) hypertension; F32.9 Major depressive disorder, single episode, unspecified; G47.30 Sleep apnea, unspecified; Z98.890 Other specified postprocedural states; Z79.899 Other long term (current) drug therapy

== ENCOUNTER → 2020-05-12 | Outpatient (CLI) | payer OTHER | END | disposition home or self-care (01) | LOC: M.PC 02:26 | PROVIDERS: ATTEND Anesthesiology Pain Medicine | DX: M54.16 Radiculopathy, lumbar region (principal); G89.29 Other chronic pain; I10 Essential (primary) hypertension; F32.9 Major depressive disorder, single episode, unspecified; G47.30 Sleep apnea, unspecified; Z98.890 Other specified postprocedural states; Z79.899 Other long term (current) drug therapy ==

== ENCOUNTER → 2020-06-09 | Outpatient (CLI) | payer OTHER ==
--- NOTE | 2020-06-24 08:20 | PAINCON ---
[address] [address] PAIN MANAGEMENT CONSULTATION Name: RAINE FRANCOIS Room: [facility]#: [id number] Admission: 06/09/20 Attend Phys: Jesus Issa MD Discharge: Date of : 57 Report #: [id number] THIS REPORT FOR: //name// cc: Ghanshyam Talley MD, William MD ~ THIS REPORT FOR: //name// CC: Jesus Talley DATE OF SERVICE: 06/09/2020 CHIEF COMPLAINT: Low back and right leg pain. HISTORY: The patient is a 64-year-old gentleman who has been followed in the pain clinic. As you recall, he has had back surgery. Continues to have pain, which can be quite problematic. He is experiencing pain that is radiating down into his hip. He has undergone epidural steroid injections and finds that they are beneficial. He rates his pain as a 7/10 today. He is contemplating going on vacation. He is going to drive from [place] and ends up in [place]. Because of the long drive, he would like to undergo an epidural steroid injection at this juncture to make his trip more pleasant. He has had no problems with injections in the past. He feels that his medications of tramadol and Mobic are helpful. ALLERGIES: PEANUTS, PHENOBARBITAL, AUGMENTIN. CURRENT MEDICATIONS: Glucosamine/chondroitin, Cozaar 25 mg, Mobic 15 mg, milk thistle extract 175 mg, total of 850 mg daily, multivitamins, omega 3 oils 1000 mg, Prilosec 20 mg, total of 40 mg, Viagra p.r.n., Flonase, Flomax 0.4 mg, tramadol 50 mg. PAIN CLINIC ASSESSMENT AND PQRS: 1. The patient is not being treated for rheumatoid arthritis. He does have some arthritic changes in the low back area. He has undergone surgery. 2. Height 5 feet 6 inches, weight 171 pounds, BMI is 27.4. 3. Vital Signs: Blood pressure 150/93, heart rate 75, respiratory rate 15, room air saturation is 97%, temperature 98.3. 4. Pain intensity, 7/10. 5. Fall history. The patient has not fallen in the last 3 months. 6. Blood thinner. The patient is not on a blood thinning medication. 7. Hypertension. The patient is being treated for hypertension. 8. Risk assessment tool, low for opioid use. 9. Functional assessment tool, reviewed. 10. Recreational drug use. The patient denies. 11. Tobacco[place] [address] PAIN MANAGEMENT CONSULTATION Name: RAINE FRANCOIS Room: [facility]#: [id number] Admission: 06/09/20 Attend Phys: Jesus Issa MD Discharge: Date of : 57 Report #: [id number] 12. Alcohol. The patient drinks 3-4 alcoholic beverages on the weekend. PHYSICAL EXAMINATION: GENERAL: The patient is a well-developed, well-nourished, white male. Appears his stated age. He is alert and oriented x 3. His affect is appropriate. Speech is fluent. HEENT: Normocephalic, atraumatic. Extraocular eye muscles intact. Sclerae nonicteric. Mucous membranes are moist. NECK: Without adenopathy or JVD. HEART: Regular rate. ABDOMEN: Nontender. EXTREMITIES: Upper extremity muscle strength judged to be 5/5 for the major muscle groups in the upper extremity. Lower extremity muscle strength judged to be 5-/5 for the major muscle groups in the right lower extremity. The patient walks with an antalgic gait. Has pain in the low back area. The patient without significant scoliosis, kyphosis or lordosis. He has a well-healed scar in the lower portion of his back. IMPRESSION: 1. Lumbar radiculopathy in the L5-S1 dermatomal distribution. 2. Polyarthralgias. 3. Essential hypertension. 4. Sleep apnea. 5. Depression. RECOMMENDATIONS: We discussed treatment options with the patient. Risks and benefits of an epidural steroid injection were again discussed. Possible complications of the procedure, which could include but are not limited to infection, muscle soreness, bleeding, nerve damage, spinal headache. We discussed the problems with COVID-19. We explained to the patient that steroids decrease one's ability to mount an immune response. Should the patient become infected, he may have a more difficult time with the virus. He elects to proceed. PROCEDURE NOTE: The patient was taken to the procedure area. He was then assisted in getting on the examination table. His back was sterilely prepped with a Betadine solution and allowed to dry. A 0.25% bupivacaine was infiltrated at the L5-S1 area. A 17-gauge Tuohy with loss of resistance technique was used to gain access to the epidural space. There was no CSF, heme or paresthesia. Total of 80 mg Depo-Medrol, 40 mg triamcinolone and 2 mL of 0.5% bupivacaine was injected. The patient tolerated the procedure well. There were no complications. He remained in the pain clinic for an appropriate amount of time. He will follow up in the future as needed. [address] [place] [address] PAIN MANAGEMENT CONSULTATION Name: RAINE FRANCOIS Room: [facility]#: [id number] Admission: 06/09/20 Attend Phys: Jesus Issa MD Discharge: Date of : 57 Report #: [id number] We would like to thank you for letting us participate in his care. We hope he continues to improve. <ELECTRONICALLY SIGNED> By: Jesus Issa MD 06/24/20819 0022 0119N. Sony Issa MD /PMT
== END | disposition home or self-care (01) ==
LOC: M.PC 03:55
PROVIDERS: ATTEND Anesthesiology Pain Medicine
DX: M54.16 Radiculopathy, lumbar region (principal); G89.29 Other chronic pain; I10 Essential (primary) hypertension; F32.9 Major depressive disorder, single episode, unspecified; G47.30 Sleep apnea, unspecified; M25.50 Pain in unspecified joint; Z98.890 Other specified postprocedural states; Z79.899 Other long term (current) drug therapy; Z88.8 Allergy status to other drugs, medicaments and biological substances

== ENCOUNTER → 2020-08-16 | Outpatient (CLI) | payer OTHER ==
[~2020-08-16] MED LIST changes: +TIZANIDINE4 MG/1 TA1 PO
--- NOTE | 2020-08-18 09:35 | PAINCON ---
[address] [address] PAIN MANAGEMENT CONSULTATION Name: RAINE FRANCOIS Room: [facility]#: [id number] Admission: 08/16/20 Attend Phys: Jesus Issa MD Discharge: Date of : 57 Report #: [id number] THIS REPORT FOR: //name// cc: Ghanshyam Talley MD, William MD ~ THIS REPORT FOR: //name// CC: Jesus Talley MD DATE OF SERVICE: 08/16/2020 CHIEF COMPLAINT: Return of pain down the back of my legs." HISTORY: The patient is a 65-year-old gentleman who has been followed in the pain clinic. As you recall, he has had back surgery in the past. Continues to have pain, which can be problematic. He has undergone epidural steroid injections and gleaned benefits from these. He went to [facility] this summer. Had a good time. Has returned today and noted an increase in his pain over the past few weeks. Rates his pain as a 7-8/10. He has used tizanidine as a muscle relaxant. He uses them sparingly. He would like to have renewal of this medication. He would like to undergo an epidural steroid injection. ALLERGIES: PEANUTS, PHENOBARBITAL, AUGMENTIN. CURRENT MEDICATIONS: Glucosamine/chondroitin, Cozaar 25 mg, Mobic 15 mg, milk thistle extract 175 mg, total of 850 mg daily, multivitamins, omega 3 oils 1000 mg, Prilosec 20 mg, total of 40 mg, Viagra p.r.n., Flonase, Flomax 0.4 mg, tramadol 50 mg. PAIN CLINIC ASSESSMENT AND PQRS: 1. The patient is not being treated for rheumatoid arthritis. He does have some arthritic changes in his back. He has undergone surgery. 2. Height 5 feet 6 inches, weight 169 pounds, BMI is 26. 3. Vital signs: Blood pressure 165/84, heart rate 70, respiratory rate 16, room air saturation 95%, temperature 98.0. 4. Pain intensity 7-8/10. 5. Fall history: The patient has not fallen in the last 3 months. 6. Blood thinner. The patient is not on a blood thinning medication. 7. Hypertension. The patient is being treated for hypertension. 8. Risk assessment tool, low for opioid use. 9. Functional assessment tool release. 10. Recreational drug use. The patient denies. 11. Tobacco: The patient denies. 12. Alcohol. The patient occasionally drinks. He drinks 3-4 [place] [address] PAIN MANAGEMENT CONSULTATION Name: RAINE FRANCOIS Room: [facility]#: [id number] Admission: 08/16/20 Attend Phys: Jesus Issa MD Discharge: Date of : 57 Report #: [id number] beverages on the weekend. PHYSICAL EXAMINATION: GENERAL: The patient is a well-developed, well-nourished white male. Appears his stated age. He is alert and oriented x 3. His affect is appropriate. Speech is fluent. HEENT: Normocephalic, atraumatic. Extraocular eye muscles intact. Sclerae nonicteric. Mucous membranes moist. The patient is wearing a facial covering. NECK: Without adenopathy or JVD. HEART: Regular rate. LUNGS: Clear. ABDOMEN: Nontender. EXTREMITIES: Upper extremity muscle strength judged to be 5/5 for the major muscle groups in the upper extremity. The patient has pain and discomfort in the lower portion of his back with pain that is radiating down into the lower portion of his back. He is without significant scoliosis, kyphosis or lordosis. The patient has pain in the L5-S1 dermatomal distribution. IMPRESSION: 1. Lumbar radiculopathy with L5-S1 dermatomal distribution. 2. Polyarthralgias. 3. Essential hypertension. 4. Sleep apnea. 5. Depression. RECOMMENDATIONS: We discussed treatment options with the patient. Risks and benefits of an epidural steroid injection were discussed. Possible complications of the procedure were reviewed. They include but are not limited to infection, worsening of pain, no improvement in pain, nerve damage, bleeding, muscle soreness. The patient was taken to the procedure area. Again, we had discussed the problems with COVID-19. They include possibility of worsening outcome given the steroid medications decrease one's immune response. PROCEDURE NOTE: The patient was assisted in getting on the examination table. A pillow was placed under the abdomen to bolster and improve positioning. His back was sterilely prepped with a Betadine solution and allowed to dry. Three times this was performed. A 17-gauge Tuohy with loss of resistance technique was used to gain access at the L5-S1 area on the right. This area had been anesthetized with 0.25% bupivacaine using a 25-gauge needle. A total of 80 mg Depo-Medrol, 40 mg triamcinolone and 2 mL of 0.25% bupivacaine was injected. The patient tolerated the procedure well. He remained in the pain clinic for an appropriate amount of time. Total of 16 seconds [place] [address] PAIN MANAGEMENT CONSULTATION Name: RAINE FRANCOIS Room: [facility]#: [id number] Admission: 08/16/20 Attend Phys: Jesus Issa MD Discharge: Date of : 57 Report #: [id number] We would like to thank you for letting us participate in his care. We hope he continues to improve. <ELECTRONICALLY SIGNED> By: Jesus Issa MD 08/18/20 0935 1418 0115N. Sony Issa MD /nt
== END | disposition home or self-care (01) ==
LOC: M.PC 08-11 10:00
PROVIDERS: ATTEND Anesthesiology Pain Medicine
DX: M54.16 Radiculopathy, lumbar region (principal); G89.29 Other chronic pain; I10 Essential (primary) hypertension; F32.9 Major depressive disorder, single episode, unspecified; G47.30 Sleep apnea, unspecified; M25.50 Pain in unspecified joint; Z98.890 Other specified postprocedural states; Z79.899 Other long term (current) drug therapy; Z88.8 Allergy status to other drugs, medicaments and biological substances

== ENCOUNTER → 2020-09-29 | Outpatient (CLI) | payer OTHER | END | disposition home or self-care (01) | LOC: M.PC 10:20 | PROVIDERS: ATTEND Anesthesiology Pain Medicine | DX: M54.16 Radiculopathy, lumbar region (principal); G89.29 Other chronic pain; I10 Essential (primary) hypertension; F32.9 Major depressive disorder, single episode, unspecified; G47.30 Sleep apnea, unspecified; Z98.890 Other specified postprocedural states; Z79.899 Other long term (current) drug therapy; Z88.8 Allergy status to other drugs, medicaments and biological substances ==

== ENCOUNTER → 2020-11-29 | Outpatient (CLI) | payer OTHER ==
[~2020-11-29] MED LIST changes: +ZANAFLEX4 MG PO
== END | disposition home or self-care (01) ==
LOC: M.PC 10:30
PROVIDERS: ATTEND Anesthesiology Pain Medicine
DX: M54.16 Radiculopathy, lumbar region (principal); G89.29 Other chronic pain; M25.50 Pain in unspecified joint; I10 Essential (primary) hypertension; G47.30 Sleep apnea, unspecified; F32.9 Major depressive disorder, single episode, unspecified; Z98.890 Other specified postprocedural states; Z79.899 Other long term (current) drug therapy; Z88.8 Allergy status to other drugs, medicaments and biological substances

== ENCOUNTER → 2021-03-07 | Outpatient (CLI) | payer OTHER | END | disposition home or self-care (01) | LOC: M.PC 02-21 10:30 | PROVIDERS: ATTEND Anesthesiology Pain Medicine | DX: M54.16 Radiculopathy, lumbar region (principal); G89.29 Other chronic pain; I10 Essential (primary) hypertension; G47.30 Sleep apnea, unspecified; F32.9 Major depressive disorder, single episode, unspecified; M25.50 Pain in unspecified joint; Z98.890 Other specified postprocedural states; Z79.899 Other long term (current) drug therapy; Z88.8 Allergy status to other drugs, medicaments and biological substances ==

== ENCOUNTER → 2021-05-23 | Outpatient (CLI) | payer OTHER | END | disposition home or self-care (01) | LOC: M.PC 10:53 | PROVIDERS: ATTEND Anesthesiology Pain Medicine | DX: M54.16 Radiculopathy, lumbar region (principal); G89.29 Other chronic pain; I10 Essential (primary) hypertension; F32.9 Major depressive disorder, single episode, unspecified; M19.90 Unspecified osteoarthritis, unspecified site; G47.30 Sleep apnea, unspecified; Z98.890 Other specified postprocedural states; Z79.899 Other long term (current) drug therapy; Z88.8 Allergy status to other drugs, medicaments and biological substances ==

== ENCOUNTER → 2021-07-25 | Outpatient (CLI) | payer OTHER | END | disposition home or self-care (01) | LOC: M.PC 10:55 | PROVIDERS: ATTEND Anesthesiology Pain Medicine | DX: M54.16 Radiculopathy, lumbar region (principal); G89.29 Other chronic pain; I10 Essential (primary) hypertension; F32.9 Major depressive disorder, single episode, unspecified; G47.30 Sleep apnea, unspecified; M25.50 Pain in unspecified joint; Z98.890 Other specified postprocedural states; Z79.899 Other long term (current) drug therapy; Z88.8 Allergy status to other drugs, medicaments and biological substances ==

== ENCOUNTER → 2021-09-26 | Outpatient (CLI) | payer OTHER | END | disposition home or self-care (01) | LOC: M.PC 11:10 | PROVIDERS: ATTEND Anesthesiology Pain Medicine | DX: M54.16 Radiculopathy, lumbar region (principal); G89.29 Other chronic pain; Z98.890 Other specified postprocedural states; Z79.899 Other long term (current) drug therapy; Z88.8 Allergy status to other drugs, medicaments and biological substances ==

== ENCOUNTER → 2021-11-30 | Outpatient (CLI) | payer OTHER | END | disposition home or self-care (01) | LOC: M.PC 11:28 | PROVIDERS: ATTEND Anesthesiology Pain Medicine | DX: M54.16 Radiculopathy, lumbar region (principal); G89.29 Other chronic pain; M19.90 Unspecified osteoarthritis, unspecified site; F32.9 Major depressive disorder, single episode, unspecified; G47.30 Sleep apnea, unspecified; Z98.890 Other specified postprocedural states; Z79.899 Other long term (current) drug therapy; Z88.8 Allergy status to other drugs, medicaments and biological substances ==